=== PATIENT | female | born 1990 | race Caucasian/White ===

== ENCOUNTER 2018-11-01 19:36 | Emergency (ER) | payer SELFPAY ==
[2018-11-01] MEDS ORDERED: Sodium Chloride 0.9% 1,000 ML IV STA (20:48)
--- NOTE | 2018-11-01 21:02 | ED PDOC ---
HPI: Abdomen Time Seen by Provider: 11/01/18 20:38 Chief Complaint (Nursing): Abdominal Pain History Per: Patient History/Exam Limitations: no limitations Onset/Duration Of Symptoms: Days Outside of [place] travel?: No Current Symptoms Are (Timing): Still Present Location Of Pain/Discomfort: RUQ, LLQ Quality Of Discomfort: Sharp Associated Symptoms: Diarrhea. denies: Fever, Chills, Nausea, Vomiting Exacerbating Factors: Movement, Cough Additional Complaint(s): Hx of anemia presenting with abdominal pain, started Saturday, diffuse but worse in RUQ and LLQ, states she went to a chiropractor and a clinic where she was diagnosed with UTI, started on macrobid (currently on day 4) but states she has had no urinary symptoms, but states that for the past 2 days her urine has been very dark. No nausea, vomiting, states her stools are a bit looser and possibly a bit paler than normal. PMD: [facility] Past Medical History Reviewed: Historical Data, Nursing Documentation, Vital Signs Vital Signs: Last Vital Signs Temp 98.3 F 11/01/18 19:44 Pulse 89 11/01/18 19:44 Resp 18 11/01/18 19:44 BP 97/60 L 11/01/18 19:44 Pulse Ox 100 11/01/18 19:44 - Medical History PMH: Anemia - Family History Family History: States: Unknown Family Hx - Home Medications Home Medications: Ambulatory Orders Medication Instructions Recorded Nitrofurantoin Macrocrystals 100 mg PO BID 11/01/18 [Macrobid] Dicyclomine [Bentyl] 20 mg PO BID #30 tab 11/02/18 Levofloxacin [Levaquin] 750 mg PO DAILY 10 Days #10 tablet 11/02/18 Simethicone [Gas Relief 80] 80 mg PO DAILY #12 ctb 11/02/18 - Allergies Allergies/Adverse Reactions: Allergies Allergy/AdvReac Type Severity Reaction Status Date / Time Penicillins Allergy RASH Verified 11/01/18 19:43 Review of Systems ROS Statement: Except As Marked, All Systems Reviewed And Found Negative Constitutional: Negative for: Fever Cardiovascular: Negative for: Chest Pain Respiratory: Negative for: Cough Gastrointestinal: Positive for: Abdominal Pain, Diarrhea. Negative for: Nausea, Vomiting Physical Exam - Reviewed Nursing Documentation Reviewed: Yes Vital Signs Reviewed: Yes - Physical Exam Appears: Positive for: Well, Non-toxic, No Acute Distress Head Exam: Positive for: ATRAUMATIC, NORMAL INSPECTION, NORMOCEPHALIC Skin: Positive for: Normal Color, Warm, DRY Eye Exam: Positive for: EOMI, Normal appearance, PERRL ENT: Positive for: Normal ENT Inspection Neck: Positive for: Normal, Painless ROM Cardiovascular/Chest: Positive for: Regular Rate, Rhythm Respiratory: Positive for: CNT, Normal Breath Sounds Gastrointestinal/Abdominal: Positive for: Soft, Tenderness (RUQ and LLQ tenderness to palpation). Negative for: Distended, Guarding, Rebound Back: Positive for: Normal Inspection Extremity: Positive for: Normal ROM Neurologic/Psych: Positive for: Alert, Oriented - Laboratory Results Result Diagrams: 11/01/18 21:07 11/01/18 21:40 - ECG O2 Sat by Pulse Oximetry: 100 Pulse Ox Interpretation: Normal Medical Decision Making Medical Decision MakinPM Patient presenting with abdominal pain --Comfortable at rest, vitals stable, mildly hypotensive but patient is very thin --Dark urine and RUQ pain possibly related to biliary pathology, will get U/S --Given LLQ abdominal pain as well, will get CT A/P --Pending labs, urine studies --Toradol for comfort, IVF 1AM Clinical history: Right upper quadrant pain. Findings: The pancreas is limited in visualization secondary to overlying bowel gas, but appears grossly unremarkable. The liver demonstrates uniform echotexture and echogenicity, with no mass lesions. The gallbladder is contracted, because the patient was not NPO. The common bile duct was not clearly identified. The right kidney measures 11.0 cm in length.there is no evidence of hydronephrosis or nephrolithiasis. There is no ascites. Impression: No acute findings. CT of the abdomen and pelvis with contrast Clinical statement: Pain. Technique: Multiple axial CT images were obtained from the base of the lungs through the floor of the pelvis utilizing 5 mm axial slices after administration of nonionic intravenous contrast. Coronal and sagittal reconstructions were also obtained. DLP 290.55 Comparison: None. Findings: Chest: The visualized lung bases are clear. There is a moderate sized hiatal hernia. Abdomen: The liver, spleen, pancreas, kidneys, gallbladder, and adrenal glands are unremarkable. The aorta is within normal limits. There is no evidence of abdominal lymphadenopathy or ascites. There is moderate bowel wall thickening and mild fluid distention of the proximal small bowel. Pelvis: Moderate amount of stool fills the colon. The colon is otherwise unremarkable, with no obstructive or inflammatory changes. The visualized portions of the appendix are unremarkable. The urinary bladder is within normal limits. The other pelvic structures appear grossly intact. There is no evidence of pelvic lymphadenopathy or ascites. Bones: There are no suspicious osseous abnormalities seen. Impression: 1. Moderate enteritis. 2. Mild constipation. No evidence of bowel obstruction. 3. Small hiatal hernia. Electronically signed on Nov 01, 2018 11:47:23 PM EST by: Miguel Gaytan M.D., ABE Certified By ABR & [facility] Fellowship Trained MRI and CT Specialist Patient comfortable, well appearing, still having some pain Advised increased fluids, bentyl, and GI followup Well appearing upon discharge Disposition - Clinical Impression Clinical Impression: Enteritis, UTI (urinary tract infection) - Patient ED Disposition Is Patient to be Admitted: No - Disposition Referrals: Pradeep Ridlde MD, PhD [Staff Provider] - Disposition: Routine/Home Disposition Time: 02:04 Condition: STABLE Prescriptions: Dicyclomine [Bentyl] 20 mg PO BID #30 tab Levofloxacin [Levaquin] 750 mg PO DAILY 10 Days #10 tablet Simethicone [Gas Relief 80] 80 mg PO DAILY #12 ctb Instructions: Urinary Tract Infections in Adults Forms: [facility] (L[place]ian)
[2018-11-01 21:37] LABS: BASO % 0.4 % (0.0-2.0); EOS # 0.1 K/uL (0.0-0.7); EOS % 1.8 % (0.0-4.0); HEMOGLOBIN 13.1 g/dL (12.0-16.0); LYMPH # 1.7 K/uL (1.0-4.3); LYMPH % 26.2 % (20.0-40.0); MEAN CELL VOLUME 90.2 fl (81.0-99.0); MEAN CORPUSCULAR HEMOGLOBIN 30.5 pg (27.0-31.0); MEAN CORPUSCULAR HGB CONC 33.8 g/dL (33.0-37.0); MEAN PLATELET VOLUME 9.4 fl (7.2-11.7); MONO # 0.5 K/uL (0.0-0.8); MONO % 8.3 % (0.0-10.0); NEUT % 63.3 % (50.0-75.0); NRBC % 0.1 % (0.0-0.0); RBC 4.32 Mil/uL (3.80-5.20); RED CELL DISTRIBUTION WIDTH 13.4 % (11.5-14.5); WHITE BLOOD COUNT 6.3 K/uL (4.8-10.8)
[2018-11-01 21:52] LABS: SQUAMOUS EPITHIAL 1 /hpf (0-5); URINE BILIRUBIN NEGATIVE (NEGATIVE); URINE BLOOD MODERATE (NEGATIVE); URINE CALCIUM OXALATE CRYSTALS FEW /hpf (<OCC); URINE CLARITY CLOUDY (Clear); URINE COLOR AMBER (YELLOW); URINE GLUCOSE (UA) NEG (NEGATIVE); URINE LEUKOCYTE ESTERASE SMALL Leu/uL (Negative); URINE PROTEIN 30 mg/dL (NEGATIVE)
[2018-11-01 22:02] LABS: ALB/GLOB RATIO 1.2 (1.0-2.1); ALBUMIN 4.2 g/dL (3.5-5.0); ALT/SGPT 23 U/L (9-52); AST/SGOT 27 U/L (14-36); BILIRUBIN,DIRECT 0.1 mg/ml (0.0-0.4); BLOOD UREA NITROGEN 6 mg/dl (7-17); CALCIUM 9.9 mg/dL (8.4-10.2); GFR NON-AFRICAN AMERICAN > 60; LIPASE 82 U/L (23-300)
[2018-11-01] MEDS ORDERED: Sodium Chloride 0.9% 50 ML IV ONE (22:39)
[2018-11-01] MEDS ORDERED: Iohexol 300 100 ML IJ ONE (22:39)
[2018-11-02] MEDS ORDERED: levoFLOXacin 750 mg in D5W 150 ML BAG IVPB STA (00:07)
[2018-11-02] MEDS ORDERED: Simethicone 80 mg Chewtab PO STA (00:07)
[2018-11-02] MEDS ORDERED: levoFLOXacin 750 mg in D5W 750 MG/150 ML BAG IVPB ONE (00:21)
[2018-11-02] MEDS ORDERED: Alum-Mag Hydrox-Simethicone Susp (30 mL) PO ONE (02:03)
[2018-11-02 02:52] VITALS: BP 122/70; PULSE 86; RESP 16; TEMP 98.4; O2SAT 98
--- NOTE | 2018-11-02 14:56 | CT ---
Date of service: 11/01/2018 PROCEDURE: CT Abdomen and Pelvis with contrast HISTORY: RUQ pain, LLQ pain COMPARISON: None. TECHNIQUE: Following the intravenous administration of iodinated contrast material, a CT examination of the abdomen and pelvis performed from the domes of the diaphragms to the symphysis pubis with reformatted datasets provided in axial, sagittal and coronal planes. Oral contrast was not administered as per referring physician request. Coronal and sagittal reformats were generated. Contrast dose: Omnipaque 300, 95 cc Radiation dose: Total exam DLP = 290.55 mGy-cm. This CT exam was performed using one or more of the following dose reduction techniques: Automated exposure control, adjustment of the mA and/or kV according to patient size, and/or use of iterative reconstruction technique. FINDINGS: LOWER THORAX: Retained fluid in the distal esophagus which appears thick-walled. Post LAP band changes are identified in the left upper quadrant abdomen. LIVER: Unremarkable. No gross lesion or ductal dilatation. GALLBLADDER AND BILE DUCTS: Completely contracted. PANCREAS: Unremarkable. No gross lesion or ductal dilatation. SPLEEN: Unremarkable. ADRENALS: Unremarkable. No mass. KIDNEYS AND URETERS: Unremarkable. No hydronephrosis. No solid mass. VASCULATURE: Unremarkable. No aortic aneurysm. No aortic atherosclerotic calcification or mural plaque present. BOWEL: Prominent retained fecal material seen at the ascending colon the lesser volume throughout the remainder of the colon. No bowel obstruction. Is relatively prominent hands seen consistent with various scattered small-bowel loops in the upper and lower abdomen potentially reflecting enteritis though this is not definite. Clinically correlate further. Evaluation of the gastrointestinal tract is limited due to the lack of oral contrast administration. Tubing seen the anterior abdominal wall at the right upper quadrant with local reactive changes. This tubing terminates in the intra peritoneal space at the upper pelvis midline. This does not appear to be directly connected to LAP band device. APPENDIX: Not identified. PERITONEUM: Unremarkable. No free fluid. No free air. LYMPH NODES: Unremarkable. No enlarged lymph nodes. BLADDER: Unremarkable. REPRODUCTIVE: Tampon identified in the vagina. BONES: No acute fracture. OTHER FINDINGS: None. IMPRESSION: 1. Evaluation of the gastrointestinal tract is limited due to the lack of oral contrast administration. No bowel obstruction is appreciated although segmental enteritis is questioned in various small-bowel loops in the abdomen. 2. Prior LAP band deployment identified in situ with separate tubing identified at the right upper quadrant subcutaneous fat with local reactive changes. It is unclear with this reaction corresponds to the patient's pain signature. Clinically correlate further. This tubing does not directly connect to the lap band device. 3. Thick-walled distal esophagus potentially related to a LAP band deployment. Please see discussion above. Preliminary report provided by Magali, 11/01/2018 11:47 p.m..
--- NOTE | 2018-11-02 17:09 | US ---
Date of service: 11/01/2018 HISTORY: RUQ pain, dark urine COMPARISON: None. TECHNIQUE: Sonographic evaluation of the right upper quadrant of the abdomen. FINDINGS: LIVER: Measures 17.4 cm in length. Normal echogenicity of the liver parenchyma. No mass. No intrahepatic bile duct dilatation. GALLBLADDER: Contracted gallbladder due to patient not being NPO. COMMON BILE DUCT: Measures 5.0 mm. No stones. No dilatation. PANCREAS: Unremarkable as visualized. No mass. No ductal dilatation. RIGHT KIDNEY: Measures 11.0 cm in length. Normal echogenicity. No calculus, mass, or hydronephrosis. AORTA: No aneurysmal dilatation. IVC: Unremarkable. OTHER FINDINGS: None . IMPRESSION: Completely contracted gallbladder with limited abdomen ultrasound otherwise unremarkable. The patient was not NPO prior to this examination. Concordant preliminary report from Magali, 11/01/2018, 11:47 p.m..
== END 2018-11-02 02:35 | disposition home or self-care (01) ==
LOC: H.ER 19:36
DX: K52.9 Noninfective gastroenteritis and colitis, unspecified (principal); N39.0 Urinary tract infection, site not specified; K59.00 Constipation, unspecified; K44.9 Diaphragmatic hernia without obstruction or gangrene; Z79.899 Other long term (current) drug therapy; Z88.0 Allergy status to penicillin; Z98.84 Bariatric surgery status
CPT/HCPCS: 74177; 76705; 80048; 80076; 81003; 81025; 83605; 83690; 85025; 96361; 96365; 96375; 99285; J1885; J7030; Q9967